=== PATIENT | male | born 1940 | race Caucasian/White ===

== ENCOUNTER 2022-01-11 19:27 | Emergency (ER) | payer MEDICARE, MEDICAID ==
[~2022-01-11] VITALS: Ht 177.8 cm; Wt 67.5 kg
[~2022-01-11 19:27] MED LIST: BUDE10.2 INH; CLOP75TA34 PO; DIAZ10TA PO; DORZ10DR18 RIGHTEYE; FENO135C PO; LOSA25TA96 PO; NORCO10T PO; ROSU10TA2 PO; SYN0.025T PO
[2022-01-11 19:32] VITALS: BP 114/61
[2022-01-11] MEDS ORDERED: PENICILLIN V POTASSIUM 250 MG/5 ML oral suspension PO SCH (19:50)
[2022-01-11] MEDS ORDERED: PENI250T2 PO (19:54)
[2022-01-11] MEDS ORDERED: CHLO118M PO (19:54)
== END 2022-01-11 20:32 | disposition home or self-care (01) ==
LOC: ER 19:28
DX: K08.89 Other specified disorders of teeth and supporting structures (principal); K13.70 Unspecified lesions of oral mucosa; K13.79 Other lesions of oral mucosa; E78.00 Pure hypercholesterolemia, unspecified; I12.9 Hypertensive chronic kidney disease with stage 1 through stage 4 chronic kidney disease, or unspecified chronic kidney disease; N18.9 Chronic kidney disease, unspecified; J43.9 Emphysema, unspecified; E03.9 Hypothyroidism, unspecified; G89.29 Other chronic pain; Z86.73 Personal history of transient ischemic attack (TIA), and cerebral infarction without residual deficits; Z98.890 Other specified postprocedural states; Z79.2 Long term (current) use of antibiotics; Z79.899 Other long term (current) drug therapy
CPT/HCPCS: 99283

== ENCOUNTER 2022-10-02 16:59 | Emergency (ER) | payer MEDICARE, MEDICAID ==
[~2022-10-02] VITALS: Ht 177.8 cm; Wt 72.7 kg
[~2022-10-02 16:59] MED LIST changes: +CHLO118M PO; -DORZ10DR18 RIGHTEYE; +DORZ10DR32 RIGHTEYE
[2022-10-02] MEDS ORDERED: normal saline 1000ML IV soln IVB ONE (17:55)
[2022-10-02] MEDS ORDERED: ondansetron/PF 4mg/2ml inj IV ONE (17:55)
[2022-10-02] MEDS ORDERED: morphine 4 MG/ML inj SYRINge IV ONE (17:55)
[2022-10-02 18:48] LABS: BASOPHILS # (AUTO) 0.1 X10'3 (0-0.2); BASOPHILS % (AUTO) 0.9 % (0-1); EOSINOPHILS # (AUTO) 0.1 X10'3 (0-0.9); EOSINOPHILS % (AUTO) 1.3 % (0-6); HEMATOCRIT 28.4 % (42.0-52.0); HEMOGLOBIN 9.3 g/dl (14.0-17.9); LYMPHOCYTES # (AUTO) 0.7 X10'3 (1.1-4.8); LYMPHOCYTES % (AUTO) 9.6 % (21-51); MEAN CORPUSCULAR HEMOGLOBIN 30.8 PG (27.0-31.0); MEAN CORPUSCULAR HGB CONC 32.9 g/dL (33.0-36.5); MEAN CORPUSCULAR VOLUME 93.8 FL (78-98); MEAN PLATELET VOLUME 7.3 FL (7.4-10.4); MONOCYTES # (AUTO) 1.1 X10'3 (0-0.9); MONOCYTES % (AUTO) 15.4 % (2-12); NEUTROPHILS # (AUTO) 5.4 X10'3 (1.8-7.7); NEUTROPHILS % (AUTO) 72.8 % (42-75); PLATELET COUNT 296 X10'3 (140-440); RED BLOOD COUNT 3.03 X10'6 (4.70-6.10); RED CELL DISTRIBUTION WIDTH 13.6 % (11.5-14.5); WHITE BLOOD COUNT 7.4 X10'3 (4.5-11.0)
[2022-10-02 19:02] LABS: ALANINE AMINOTRANSFERASE 51 U/L (12-78); ALBUMIN 2.5 G/DL (3.4-5.0); ALBUMIN/GLOBULIN RATIO 0.7 (1.1-1.5); ALKALINE PHOSPHATASE 123 IU/L (46-116); ANION GAP 6 (8-16); ASPARTATE AMINO TRANSFERASE 41 U/L (10-37); BILIRUBIN,TOTAL 1.4 MG/DL (0.1-1.0); BLOOD UREA NITROGEN 14 MG/DL (7-18); BUN/CREATININE RATIO 19.2 (10.0-20.0); CALCIUM 8.3 MG/DL (8.5-10.1); CHLORIDE 103 MMOL/L (99-107); CREATININE 0.73 MG/DL (0.60-1.10); GLUCOSE 94 MG/DL (70-104); POTASSIUM 3.6 MMOL/L (3.5-5.1); SODIUM 139 MMOL/L (135-145); TOTAL CARBON DIOXIDE 29.7 MMOL/L (24-32); TOTAL PROTEIN 5.9 G/DL (6.4-8.2); eGFR > 90 ML/MIN
[2022-10-02 22:30] VITALS: BP 143/66
[2022-10-02 23:31] LABS: CLARITY,URINE CLEAR (Clear); COLOR,URINE YELLOW (Yellow); GLUCOSE, URINE NEGATIVE (Neg); KETONES,URINE NEGATIVE (Neg); LEUKOCYTE ESTERASE ,URINE NEGATIVE (Neg); NITRITES, URINE NEGATIVE (Neg); OCCULT BLOOD,URINE NEGATIVE (Neg); PROTEIN,URINE NEGATIVE (Neg); UROBILINOGEN,URINE 0.2 E.U/dL (0.2-1.0)
[2022-10-02 23:38] LABS: UA COLLECTION TYPE CLN CATCH MIDSTREAM
--- NOTE | 2022-10-03 07:00 | NUR ---
ASLEEP ON BED. RESP UNLABORED. NO NEEDS AT THIS TIME.
--- NOTE | 2022-10-03 08:00 | NUR ---
VOIDING PER URINAL. DENIES PAIN AT PRESENT.
--- NOTE | 2022-10-03 09:00 | NUR ---
HERE TO VISIT. AWAITING PLASTIC PRESS MOLDER FOR ASSISTANCE WITH DC PLANNING.
--- NOTE | 2022-10-03 10:00 | NUR ---
DAYCARE WORKER HERE TO SPEAK WITH PATIENT AND . [facility] IS WILLING TO ACCEPT PATIENT BACK IN THEIR FACILTY. ARRANGEMENTS WILL BE MADE PER DAYCARE WORKER. PATIENT EATING BREAKFAST AND CONVERSING WITH , IN ROOM.
== END 2022-10-03 13:06 | disposition home or self-care (01) ==
LOC: ER 17:00
DX: G89.18 Other acute postprocedural pain (principal); M25.551 Pain in right hip
CPT/HCPCS: 73502; 80053; 81003; 85025; 96361; 96374; 96375; 99285; J2270; J2405; J7030

== ENCOUNTER 2023-10-03 08:38 | Emergency (ER) | payer MEDICARE, MEDICAID ==
[~2023-10-03] VITALS: Ht 177.8 cm; Wt 72.7 kg
[~2023-10-03 08:38] MED LIST changes: +DIAZ-546 PO; -DIAZ10TA PO; +LOSA-415 PO; -LOSA25TA96 PO
[2023-10-03 08:45] VITALS: BP 137/64; PULSE 73; RESP 16; TEMP 97.5; O2SAT 98
[2023-10-03] MEDS ORDERED: NAPR-56 PO (09:50)
== END 2023-10-03 10:40 | disposition home or self-care (01) ==
LOC: ER 08:39
DX: S52.571A Other intraarticular fracture of lower end of right radius, initial encounter for closed fracture (principal); S52.611A Displaced fracture of right ulna styloid process, initial encounter for closed fracture; Z86.73 Personal history of transient ischemic attack (TIA), and cerebral infarction without residual deficits; E78.00 Pure hypercholesterolemia, unspecified; I12.9 Hypertensive chronic kidney disease with stage 1 through stage 4 chronic kidney disease, or unspecified chronic kidney disease; N18.9 Chronic kidney disease, unspecified; E03.9 Hypothyroidism, unspecified; G89.29 Other chronic pain; M54.9 Dorsalgia, unspecified; J44.9 Chronic obstructive pulmonary disease, unspecified; W18.30XA Fall on same level, unspecified, initial encounter; Y93.89 Activity, other specified; Y92.89 Other specified places as the place of occurrence of the external cause; Y99.8 Other external cause status
CPT/HCPCS: 29125; 73110; 99283

== ENCOUNTER 2023-10-07 10:10 | Emergency (ER) | payer MEDICARE, MEDICAID ==
[~2023-10-07] VITALS: Ht 177.8 cm; Wt 60.0 kg
[~2023-10-07 10:10] MED LIST changes: +NAPR-56 PO
[2023-10-07 10:33] VITALS: BP 122/69; PULSE 89; RESP 18; TEMP 98.2; O2SAT 99
== END 2023-10-07 11:36 | disposition home or self-care (01) ==
LOC: ER 10:10
DX: S52.501D Unspecified fracture of the lower end of right radius, subsequent encounter for closed fracture with routine healing (principal); S52.611D Displaced fracture of right ulna styloid process, subsequent encounter for closed fracture with routine healing; X58.XXXD Exposure to other specified factors, subsequent encounter
CPT/HCPCS: 29125; 99284

== ENCOUNTER 2023-10-15 07:17 | Emergency (ER) | payer MEDICARE, MEDICAID ==
[~2023-10-15] VITALS: Ht 177.8 cm; Wt 72.0 kg
[2023-10-15 07:21] VITALS: BP 138/85; PULSE 88; RESP 16; TEMP 99.1; O2SAT 99
== END 2023-10-15 11:01 | disposition left against medical advice (07) ==
LOC: ER 07:18
DX: M79.601 Pain in right arm (principal); M79.602 Pain in left arm; Z53.21 Procedure and treatment not carried out due to patient leaving prior to being seen by health care provider